=== PATIENT | male | born 1990 | race Caucasian/White ===

== ENCOUNTER 2020-04-08 09:52 | Emergency (ER) | payer BC ==
[2020-04-08] MEDS ORDERED: ONDANSETRON HCL INJ/PF 4 MG/2 ML SDV IV ONE (10:22)
[2020-04-08] MEDS ORDERED: RINGERS SOLUTION,LACTATED 1,000 ML IV ONE ×2 (10:22→15:48)
--- NOTE | 2020-04-08 10:24 | ER Document Report ---
ED Medical Screen (RME) - General Chief Complaint: Abdominal Pain Stated Complaint: ABDOMINAL PAIN,WEAKNESS Time Seen by Provider: 04/08/20 10:19 Notes: Patient presents complaining of abdominal pain nausea vomiting and diarrhea over the past 2 days. Patient states that leading up he had been on an alcohol frazier for 2 days prior to onset of his symptoms. Patient states he has never had a hangover that lasted this long. Patient reports having sweats occasionally. Patient last vomited yesterday although has had continued loose stools. Patient had a friend who was a medic come over and given 2 L IV fluid yesterday. Patient denies any significant medical history or previous surgeries. I have greeted and performed a rapid initial assessment of this patient. A comprehensive ED assessment and evaluation of the patient, analysis of test results and completion of the medical decision making process will be conducted by additional ED providers. Physical Exam - Vital signs Vitals: Temp Pulse Resp BP Pulse Ox 98.2 F 82 16 136/81 H 100 04/08/20 10:06 04/08/20 10:06 04/08/20 10:06 04/08/20 10:06 04/08/20 10:06 - Abdominal Inspection: Normal Tenderness: Tender - Generalized periumbilical area, exam limited as patient is in chair Course - Vital Signs Vital signs: Temp Pulse Resp BP Pulse Ox 98.2 F 82 16 136/81 H 100 04/08/20 10:06 04/08/20 10:06 04/08/20 10:06 04/08/20 10:06 04/08/20 10:06
[2020-04-08 10:49] LABS: ABSOLUTE BASOPHILS # (AUTO) 0.1 10^3/uL (0.0-0.2); ABSOLUTE EOSINOPHILS # (AUTO) 0.1 10^3/uL (0.0-0.6); ABSOLUTE LYMPHOCYTES (AUTO) 1.7 10^3/uL (0.5-4.7); BASOPHILS % (AUTO) 1.3 % (0-2); EOSINOPHILS % (AUTO) 0.8 % (0-6); HEMATOCRIT 47.1 % (37.9-51.0); HEMOGLOBIN 16.9 g/dL (13.5-17.0); LYMPHOCYTES % (AUTO) 21.1 % (13-45); MEAN CORPUSCULAR HEMOGLOBIN 34.1 pg (27.0-33.4); MEAN CORPUSCULAR HGB CONC 35.9 g/dL (32.0-36.0); MEAN CORPUSCULAR VOLUME 95 fl (80-97); MONOCYTES % (AUTO) 12.7 % (3-13); PLATELET COUNT 307 10^3/uL (150-450); RED BLOOD COUNT 4.97 10^6/uL (4.35-5.55); RED CELL DISTRIBUTION WIDTH 12.1 % (11.5-14.0); SEGMENTED NEUTROPHILS % (AUTO) 64.1 % (42-78); TOTAL CELLS COUNTED % (AUTO) 100 %; WHITE BLOOD COUNT 7.8 10^3/uL (4.0-10.5)
[2020-04-08 11:11] LABS: ALBUMIN 5.7 g/dL (3.5-5.0); ALKALINE PHOSPHATASE 83 U/L (38-126); ANION GAP 16 (5-19); ASPARTATE AMINO TRANSFERASE 66 U/L (17-59); BILIRUBIN,DIRECT 0.5 mg/dL (0.0-0.4); BILIRUBIN,TOTAL 1.7 mg/dL (0.2-1.3); BLOOD UREA NITROGEN 10 mg/dL (7-20); CARBON DIOXIDE 30 mmol/L (22-30); CHLORIDE 91 mmol/L (98-107); GLUCOSE 105 mg/dL (75-110)
[2020-04-08 11:11] LABS: APPEARANCE,URINE CLEAR; BILIRUBIN,URINE NEGATIVE (NEGATIVE); COLOR,URINE AMBER; GLUCOSE, URINE NEGATIVE (NEGATIVE); KETONES,URINE 100 mg/dL (NEGATIVE); URINE SPECIFIC GRAVITY 1.025
[2020-04-08 11:12] LABS: LEUKOCYTE ESTERASE,URINE NEGATIVE (NEGATIVE); NITRITE,URINE NEGATIVE (NEGATIVE); PROTEIN,URINE 100 mg/dL (NEGATIVE)
[2020-04-08] MEDS ORDERED: ONDANSETRON HCL INJ/PF 4 MG/2 ML SDV ONE (14:50)
--- NOTE | 2020-04-08 16:17 | ER Document Report ---
ED General - General Chief Complaint: Abdominal Pain Stated Complaint: ABDOMINAL PAIN,WEAKNESS Time Seen by Provider: 04/08/20 10:19 - HPI Notes: Patient presents emergency department for evaluation of nausea, vomiting, diarrhea after a drinking binge. He was drinking alcohol heavily for 3 days. On Sunday or Sunday morning he woke with multiple episodes of emesis. He states that some of it was bright red, he was concerned it might be blood, but he had just been drinking sangria. He did have some diarrhea, and some stools that were darker, but he denies any ethan melena. He had a loose bowel movement yesterday but states it was not dark. He had some abdominal pain that was lower and cramping, but it seems to have resolved as well. - Related Data Allergies/Adverse Reactions: No Known Allergies Allergy (Unverified 04/08/20 14:15) Past Medical History - General Information source: Patient - Social History Smoking Status: Current Every Day Smoker Frequency of alcohol use: Heavy Drug Abuse: Marijuana Family History: Reviewed & Not Pertinent Review of Systems - Review of Systems Constitutional: No symptoms reported, Diaphoresis EENT: No symptoms reported Cardiovascular: No symptoms reported Respiratory: No symptoms reported Gastrointestinal: See HPI Genitourinary: No symptoms reported Musculoskeletal: No symptoms reported Skin: No symptoms reported Neurological/Psychological: See HPI Physical Exam - Vital signs Vitals: Temp Pulse Resp BP Pulse Ox 98.2 F 82 16 136/81 H 100 04/08/20 10:06 04/08/20 10:06 04/08/20 10:06 04/08/20 10:06 04/08/20 10:06 - Notes Notes: Vital signs reviewed, please refer to chart. Head is normocephalic, atraumatic. Pupils equal round, reactive to light. Neck is supple without meningismus. Heart is regular rate and rhythm. Lungs are clear to auscultation bilaterally. Abdomen is soft, nontender, normoactive bowel sounds throughout. Extremities without cyanosis, clubbing. Posterior calves are nontender. Peripheral pulses are equal. Skin is warm and dry. Patient is awake, alert, neurological exam is nonfocal. Course - Re-evaluation Re-evalutation: 04/08/20 16:20 Patient presents emergency department for evaluation. He was initially seen through triage. The patient had admitted to a heavy binge on alcohol preceding all of his symptoms. On further questioning he states he has been drinking daily for the last several weeks. We talked at length about this, he states that he is interested in cutting down. He denies needing any acute help with this. He has never had any seizures or other significant withdrawal symptoms. Otherwise, I suspect the increased anxiety and diaphoresis he is having is secondary to the alcohol. His diarrhea and abdominal pain have entirely resolved prior to arrival. His nausea is feeling improved, he is feeling improved overall after the fluids. I will send him in with nausea. Is encouraged to cut down on his drinking, follow-up with primary care, return to the ED with worsening. - Vital Signs Vital signs: Temp Pulse Resp BP Pulse Ox 98.2 F 71 16 148/74 H 97 04/08/20 10:06 04/08/20 17:23 04/08/20 17:23 04/08/20 17:23 04/08/20 17:23 - Laboratory Results Result Diagrams: 04/08/20 10:35 04/08/20 10:35 Laboratory Results Interpreted: 04/08/20 04/08/20 04/08/20 10:30 10:35 10:35 MCH 34.1 H Chloride 91 L Calcium 11.0 H Total Bilirubin 1.7 H Direct Bilirubin 0.5 H AST 66 H Total Protein 10.0 H Albumin 5.7 H Urine Protein 100 H Urine Ketones 100 H Urine Blood SMALL H Urine Urobilinogen 2.0 H Critical Laboratory Results Reviewed: No Critical Results - Radiology Results Critical Radiology Results Reviewed: No Critical Results Discharge - Discharge Clinical Impression: Alcohol consumption binge drinking Nausea & vomiting Qualifiers: Vomiting type: unspecified Vomiting Intractability: non-intractable Qualified Code(s): R11.2 - Nausea with vomiting, unspecified Diarrhea Qualifiers: Diarrhea type: unspecified type Qualified Code(s): R19.7 - Diarrhea, unspecified Condition: Stable Disposition: HOME, SELF-CARE Instructions: Antinausea Medication ([facility]), Diarrhea, Nonspecific ([facility]), Intravenous (IV) Fluids ([facility]), Vomiting ([facility]) Additional Instructions: Please abstain from binge drinking as discussed. Stay hydrated. Zofran as needed for nausea. Follow-up with primary care next week. Return to the emergency department with worsening or new concerning symptoms of any sort. Prescriptions: Ondansetron [Zofran Odt 4 mg Tablet] 1 - 2 tab PO Q4H PRN #15 tab.rapdis PRN Reason: For Nausea/Vomiting
[2020-04-08 17:23] VITALS: BP 148/74
== END 2020-04-08 17:28 | disposition home or self-care (01) ==
LOC: ER 09:52
DX: R11.2 Nausea with vomiting, unspecified (principal); R19.7 Diarrhea, unspecified; R10.33 Periumbilical pain; F17.200 Nicotine dependence, unspecified, uncomplicated; F12.10 Cannabis abuse, uncomplicated; F41.9 Anxiety disorder, unspecified; R61 Generalized hyperhidrosis
CPT/HCPCS: 99284; 96361; 96374; 36415; 83690; 83735; 85025; 80053; 81001; J2405; J7120